=== PATIENT | male | born 1975 | race Caucasian/White ===

== ENCOUNTER → 2017-05-04 09:13 | Outpatient (CLI) | payer OTHER | END | disposition home or self-care (01) | LOC: D.US 09:13 | DX: R10.9 Unspecified abdominal pain (principal) ==

== ENCOUNTER 2018-02-04 02:34 | Emergency (ER) | payer OTHER ==
[~2018-02-04] VITALS: Ht 182.9 cm; Wt 90.9 kg
[2018-02-04 02:42] VITALS: Ht 182.9 cm; Wt 90.9 kg
[2018-02-04] MEDS ORDERED: ZANAFLEX4 MG PO (02:45)
[2018-02-04 03:20] LABS: APPEARANCE CLEAR (CLEAR); BILIRUBIN NEGATIVE (NEGATIVE); COLOR DK YELLOW (YELLOW); GLUCOSE NEGATIVE (NEGATIVE); KETONE SMALL mg/dL (NEGATIVE); NITRITE NEGATIVE (NEGATIVE); PROTEIN NEGATIVE (NEGATIVE); UROBILINOGEN NORMAL (NORMAL)
[2018-02-04 03:53] LABS: BASOPHILS 0.2 % (0-2); EOSINOPHILS 2.1 % (0-7); HEMATOCRIT 46.6 % (42.0-54.0); HEMOGLOBIN 16.2 g/dL (13.5-17.5); IMMATURE GRANULOCYTES 0.2 % (0-5); LYMPHOCYTES 24.7 % (15-50); MCH 32.3 pg (26.0-34.0); MCHC 34.8 g/dL (31.0-37.0); MEAN PLATELET VOLUME 10.1 fL (7.4-10.4); MONOCYTES 6.1 % (2-11); NEUTROPHILS 66.7 % (40-80); PLATELET COUNT 267 10x3/uL (130-400); RBC 5.01 10x6/uL (4.20-6.10); RDW 12.4 % (11.5-14.5); WBC 11.8 10x3/uL (4.8-10.8)
[2018-02-04] MEDS ORDERED: LINZESS145 MCG PO (04:02)
[2018-02-04 04:10] LABS: ALBUMIN 4.2 g/dL (3.4-5.0); ALKALINE PHOSPHATASE 68 U/L (46-116); ALT (SGPT) 26 U/L (10-68); AMYLASE - SERUM 56 U/L (25-115); BILIRUBIN - TOTAL 0.47 mg/dL (0.2-1.3); CALC OSMOLALITY 280 mosm/kg (275-300); CALCIUM 9.6 mg/dL (8.5-10.1); CARBON DIOXIDE 30.6 mmol/L (21.0-32.0); CHLORIDE - SERUM 103 mmol/L (98-107); GLUCOSE 112 mg/dL (74-106); LIPASE 96 U/L (73-393); POTASSIUM - SERUM 4.1 mmol/L (3.5-5.1); PROTEIN - SERUM 7.6 g/dL (6.4-8.2); SODIUM 141 mmol/L (136-145); UREA NITROGEN 10 mg/dL (7-18); eGFR NON AFRICAN AMERICAN 87 mL/min (90-120)
[2018-02-04 04:51] VITALS: BP 160/85
== END 2018-02-04 04:52 | disposition home or self-care (01) ==
LOC: D.ER 02:34
PROVIDERS: Emergency Medicine
DX: K59.01 Slow transit constipation (principal); F17.200 Nicotine dependence, unspecified, uncomplicated

== ENCOUNTER 2018-08-19 04:15 | Observation (INO) | payer OTHER ==
[~2018-08-19] VITALS: Ht 182.9 cm; Wt 90.9 kg
[~2018-08-19 04:15] MED LIST: LINZESS145 MCG PO; ZANAFLEX4 MG PO
[2018-08-19 04:17] VITALS: Ht 182.9 cm; Wt 90.9 kg
[2018-08-19] MEDS ORDERED: WELLBUTRIN SR150 MG PO (04:18)
[2018-08-19] MEDS ORDERED: MYLANTA / MAALO30 ML PO (04:19)
[2018-08-19 04:45] LABS: BASOPHILS 0.3 % (0-2); EOSINOPHILS 3.9 % (0-7); HEMATOCRIT 37.4 % (42.0-54.0); HEMOGLOBIN 12.4 g/dL (13.5-17.5); IMMATURE GRANULOCYTES 0.2 % (0-5); LYMPHOCYTES 22.7 % (15-50); MCH 31.4 pg (26.0-34.0); MCHC 33.2 g/dL (31.0-37.0); MCV 94.7 fL (80.0-100.0); MONOCYTES 4.7 % (2-11); NEUTROPHILS 68.2 % (40-80); PLATELET COUNT 241 10x3/uL (130-400); RBC 3.95 10x6/uL (4.20-6.10); RDW 12.8 % (11.5-14.5); WBC 12.8 10x3/uL (4.8-10.8)
[2018-08-19 05:13] LABS: ALBUMIN 3.4 g/dL (3.4-5.0); ALKALINE PHOSPHATASE 61 U/L (46-116); ALT (SGPT) 33 U/L (10-68); BILIRUBIN - TOTAL 0.14 mg/dL (0.2-1.3); CALC OSMOLALITY 289 mosm/kg (275-300); CALCIUM 8.2 mg/dL (8.5-10.1); CARBON DIOXIDE 27.3 mmol/L (21.0-32.0); CHLORIDE - SERUM 106 mmol/L (98-107); CREATININE - SERUM 1.1 mg/dL (0.6-1.3); GLUCOSE 95 mg/dL (74-106); POTASSIUM - SERUM 4.4 mmol/L (3.5-5.1); PROTEIN - SERUM 5.7 g/dL (6.4-8.2); SODIUM 143 mmol/L (136-145); UREA NITROGEN 26 mg/dL (7-18); eGFR NON AFRICAN AMERICAN 78 mL/min (90-120)
[2018-08-19 05:18] LABS: LIPASE 127 U/L (73-393); TROPONIN-I < 0.017 ng/mL (0.000-0.060)
[2018-08-19 07:39] LABS: BASOPHILS 0.2 % (0-2); HEMATOCRIT 37.1 % (42.0-54.0); HEMOGLOBIN 12.4 g/dL (13.5-17.5); IMMATURE GRANULOCYTES 0.2 % (0-5); LYMPHOCYTES 23.1 % (15-50); MCH 31.6 pg (26.0-34.0); MCHC 33.4 g/dL (31.0-37.0); MCV 94.6 fL (80.0-100.0); MEAN PLATELET VOLUME 10.7 fL (7.4-10.4); NEUTROPHILS 67.5 % (40-80); PLATELET COUNT 260 10x3/uL (130-400); RBC 3.92 10x6/uL (4.20-6.10); WBC 12.7 10x3/uL (4.8-10.8)
[2018-08-19 07:50] LABS: APTT 22.4 SECONDS (22.8-39.4); PROTIME 12.7 SECONDS (11.6-15.0)
[2018-08-19 09:09] VITALS: BP 134/51
[2018-08-19 11:56] LABS: % SATURATION 16 % (15-55); IRON 55 ug/dl (35-150); TOTAL IRON BIND CAPACITY 325 ug/dl (260-445); UNSAT IRON BIND CAPACITY 270 ug/dl (150-375)
[2018-08-19 12:50] VITALS: BP 118/51
[2018-08-19 16:07] LABS: HEMOGLOBIN 11.5 g/dL (13.5-17.5)
[2018-08-19 17:26] VITALS: BP 121/74
--- NOTE | 2018-08-19 18:40 | NUR ---
I have reviewed this patient and I concur with the Shift Assessment completed by the Licensed Practical Nurse today this shift.
--- NOTE | 2018-08-19 20:00 | NUR ---
ALERT SITTING UP IN BED, REPORTS ABD CRAMPING REQUESTING ZOFRAN, SEE SHIFT ASSESSMENT, CALL LIGHT IN REACH
[2018-08-19 20:15] VITALS: BP 127/79
[2018-08-19 23:23] LABS: HEMATOCRIT 33.2 % (42.0-54.0); HEMOGLOBIN 11.5 g/dL (13.5-17.5)
[2018-08-20 00:20] VITALS: BP 103/64
[2018-08-20 05:55] VITALS: BP 122/59
[2018-08-20 06:58] LABS: BASOPHILS 0.3 % (0-2); EOSINOPHILS 3.7 % (0-7); HEMATOCRIT 32.2 % (42.0-54.0); HEMOGLOBIN 10.8 g/dL (13.5-17.5); IMMATURE GRANULOCYTES 0.2 % (0-5); LYMPHOCYTES 34.6 % (15-50); MCH 31.1 pg (26.0-34.0); MCHC 33.5 g/dL (31.0-37.0); MCV 92.8 fL (80.0-100.0); MEAN PLATELET VOLUME 10.3 fL (7.4-10.4); MONOCYTES 5.4 % (2-11); NEUTROPHILS 55.8 % (40-80); PLATELET COUNT 256 10x3/uL (130-400); RBC 3.47 10x6/uL (4.20-6.10); RDW 12.9 % (11.5-14.5)
[2018-08-20 06:59] LABS: WBC 8.7 10x3/uL (4.8-10.8)
[2018-08-20 07:10] LABS: CALC OSMOLALITY 279 mosm/kg (275-300); CALCIUM 8.7 mg/dL (8.5-10.1); CARBON DIOXIDE 27.7 mmol/L (21.0-32.0); CHLORIDE - SERUM 106 mmol/L (98-107); GLUCOSE 113 mg/dL (74-106); POTASSIUM - SERUM 3.9 mmol/L (3.5-5.1); SODIUM 139 mmol/L (136-145); eGFR NON AFRICAN AMERICAN 87 mL/min (90-120)
[2018-08-20 07:12] LABS: UREA NITROGEN 16 mg/dL (7-18)
[2018-08-20 07:24] LABS: HEMATOCRIT 31.6 % (42.0-54.0); HEMOGLOBIN 10.7 g/dL (13.5-17.5)
--- NOTE | 2018-08-20 07:45 | NUR ---
AAOX4. ON ROOM AIRM IV TO RIGHT AC PATENT INFUSING NS AT 75 ML/HR. TELEMETRY PRESENT, FAMILY PRESENT IN ROOM, AMBULATORY, DENIES ANY CURRENT NEEDS OR DISCOMFORTS, BED LOWERED AND LOCKED, CALL LIGHT WITHIN REACH. CPOC
[2018-08-20 08:13] VITALS: BP 107/65
--- NOTE | 2018-08-20 12:20 | NUR ---
AAOX4. ON ROOM AIR, IV TO RIGHT AC, PATENT, INFUSING NS AT 75ML/HR. DENIES ANY PAIN OR NAUSEA, NO BM OF NOW, DENIES ANY OTHER NEEDS OR DISCOMFORTS, BED LOWERED AND LOCKED, FAMILY PRESENT IN ROOM, CALL LIGHT WITHIN REACH. CPOC
[2018-08-20] MEDS ORDERED: MIRALAX17 GM PO (12:29)
[2018-08-20 12:37] VITALS: BP 122/61
[2018-08-20] MEDS ORDERED: METAMUCIL PACKE1 PKT PO (14:22)
--- NOTE | 2018-08-20 14:51 | NUR ---
DISCHARGE INSTRUCTIONS GIVEN. VERBALIZED UNDERSTANDING, IV DISCONTINUED TO RIGHT AC, CATHETER TIP INTACT, AMBULATORY, CHOSE TO WALK OFF UNIT, PRESENT. DENIES ANY CONCERNS OR QUESTIONS AT CURRENT TIME.
[2018-08-22 11:12] LABS: FOLATE (FOLIC ACID) - SERUM 9.9 ng/mL (>3.0)
== END 2018-08-20 14:54 | disposition home or self-care (01) ==
LOC: D.ER 04:15 → OBSVTIME 05:35 → D.EDHOLD 05:35 → D.MS 05:35
PROVIDERS: Family Medicine; Internal Medicine Gastroenterology; ADMIT Internal Medicine Nephrology; ATTEND Internal Medicine Nephrology
DX: K92.2 Gastrointestinal hemorrhage, unspecified (principal); D64.9 Anemia, unspecified; K59.09 Other constipation; F10.10 Alcohol abuse, uncomplicated; F17.213 Nicotine dependence, cigarettes, with withdrawal; D62 Acute posthemorrhagic anemia